=== PATIENT | male | born 1950 ===

== ENCOUNTER 2020-08-23 04:30 | Day surgery (SDC) | payer OTHER ==
[~2020-08-23 04:30] MED LIST: TAMS0.4C PO; TOPROL XL25 M1 PO
== END 2020-08-23 14:15 | disposition home or self-care (01) ==
LOC: CIR.AMB 04:30
PROVIDERS: ATTEND Specialist
DX: K40.90 Unilateral inguinal hernia, without obstruction or gangrene, not specified as recurrent (principal); Z20.822 Contact with and (suspected) exposure to COVID-19